=== PATIENT | male | born 1980 | race Caucasian/White ===

== ENCOUNTER 2020-11-09 11:34 | Emergency (ER) | payer BC ==
[~2020-11-09] VITALS: Ht 188 cm; Wt 97.7 kg
[2020-11-09] MEDS ORDERED: diltiazem 5mg/ml 5ml inj. IV ONE (11:55)
[2020-11-09 12:11] LABS: BASOPHILS % (AUTO) 0.4 % (0-1); EOSINOPHILS # (AUTO) 0.4 X10'3 (0-0.9); EOSINOPHILS % (AUTO) 3.8 % (0-6); HEMATOCRIT 51.1 % (42.0-52.0); HEMOGLOBIN 17.4 g/dl (14.0-17.9); LYMPHOCYTES # (AUTO) 1.9 X10'3 (1.1-4.8); LYMPHOCYTES % (AUTO) 20.2 % (21-51); MEAN CORPUSCULAR HEMOGLOBIN 32.3 PG (27.0-31.0); MEAN CORPUSCULAR HGB CONC 34.1 g/dL (33.0-36.5); MEAN CORPUSCULAR VOLUME 94.5 FL (78-98); MEAN PLATELET VOLUME 7.8 FL (7.4-10.4); MONOCYTES # (AUTO) 0.7 X10'3 (0-0.9); MONOCYTES % (AUTO) 7.4 % (2-12); NEUTROPHILS # (AUTO) 6.4 X10'3 (1.8-7.7); NEUTROPHILS % (AUTO) 68.2 % (42-75); PLATELET COUNT 268 X10'3 (140-440); RED CELL DISTRIBUTION WIDTH 12.6 % (11.5-14.5); WHITE BLOOD COUNT 9.4 X10'3 (4.5-11.0)
[2020-11-09 12:35] LABS: ALANINE AMINOTRANSFERASE 32 U/L (12-78); ALBUMIN 4.4 G/DL (3.4-5.0); ALBUMIN/GLOBULIN RATIO 1.2 (1.1-1.5); ALKALINE PHOSPHATASE 61 IU/L (46-116); ASPARTATE AMINO TRANSFERASE 24 U/L (10-37); BILIRUBIN,TOTAL 0.7 MG/DL (0.1-1.0); BLOOD UREA NITROGEN 9 MG/DL (7-18); BUN/CREATININE RATIO 7.3 (5.4-32.0); CHLORIDE 106 MMOL/L (99-107); CREATININE 1.23 MG/DL (0.60-1.10); GLUCOSE 75 MG/DL (70-104); MAGNESIUM 2.3 MG/DL (1.5-2.4); POTASSIUM 4.1 MMOL/L (3.5-5.1); TOTAL CARBON DIOXIDE 29.3 MMOL/L (24-32); eGFR 65 ML/MIN
[2020-11-09] MEDS ORDERED: etomidate 2mg/ml inj. IV ONE (12:35)
[2020-11-09 12:52] LABS: ANION GAP 11 (8-16); SODIUM 145 MMOL/L (135-145)
[2020-11-09 14:19] VITALS: BP 121/77
== END 2020-11-09 14:20 | disposition home or self-care (01) ==
LOC: ER 11:35
DX: I48.20 Chronic atrial fibrillation, unspecified (principal); R00.2 Palpitations; R42 Dizziness and giddiness
CPT/HCPCS: 36415; 71045; 80053; 83735; 83880; 84443; 84484; 85025; 92960; 93005; 94760; 94799; 96374; 99291; J3490

== ENCOUNTER 2021-01-14 07:29 | Emergency (ER) | payer BC ==
[~2021-01-14] VITALS: Ht 188 cm; Wt 97.7 kg
[2021-01-14] MEDS ORDERED: fentaNYL/PF 50MCG/1 ML 2ML syringe IV ONE (07:45)
[2021-01-14] MEDS ORDERED: ondansetron/PF 4mg/2ml inj IV ONE ×2 (07:45)
[2021-01-14] MEDS ORDERED: etomidate 2mg/ml inj. IV ONE (07:45)
[2021-01-14] MEDS ORDERED: heparin 10,000 units/1 ML INJ IV ONE (07:45)
[2021-01-14] MEDS ORDERED: SOTA80TA PO (08:01)
[2021-01-14] MEDS ORDERED: APIX5TAB3 PO (08:01)
[2021-01-14 08:34] LABS: BASOPHILS % (AUTO) 0.1 % (0-1); EOSINOPHILS # (AUTO) 0.2 X10'3 (0-0.9); EOSINOPHILS % (AUTO) 1.8 % (0-6); HEMATOCRIT 44.1 % (42.0-52.0); HEMOGLOBIN 15.1 g/dl (14.0-17.9); LYMPHOCYTES # (AUTO) 1.5 X10'3 (1.1-4.8); LYMPHOCYTES % (AUTO) 18.4 % (21-51); MEAN CORPUSCULAR HEMOGLOBIN 32.6 PG (27.0-31.0); MEAN CORPUSCULAR HGB CONC 34.3 g/dL (33.0-36.5); MONOCYTES # (AUTO) 0.5 X10'3 (0-0.9); MONOCYTES % (AUTO) 6.5 % (2-12); NEUTROPHILS # (AUTO) 6.2 X10'3 (1.8-7.7); NEUTROPHILS % (AUTO) 73.2 % (42-75); PLATELET COUNT 224 X10'3 (140-440); RED BLOOD COUNT 4.64 X10'6 (4.70-6.10); RED CELL DISTRIBUTION WIDTH 12.5 % (11.5-14.5); WHITE BLOOD COUNT 8.4 X10'3 (4.5-11.0)
[2021-01-14 08:39] LABS: ALANINE AMINOTRANSFERASE 26 U/L (12-78); ALBUMIN/GLOBULIN RATIO 1.4 (1.1-1.5); ALKALINE PHOSPHATASE 48 IU/L (46-116); ANION GAP 16 (8-16); ASPARTATE AMINO TRANSFERASE 22 U/L (10-37); BILIRUBIN,TOTAL 1.4 MG/DL (0.1-1.0); BLOOD UREA NITROGEN 11 MG/DL (7-18); BUN/CREATININE RATIO 10.4 (5.4-32.0); CALCIUM 8.2 MG/DL (8.5-10.1); CHLORIDE 105 MMOL/L (99-107); CREATININE 1.06 MG/DL (0.60-1.10); GLUCOSE 115 MG/DL (70-104); POTASSIUM 3.3 MMOL/L (3.5-5.1); SODIUM 141 MMOL/L (135-145); TOTAL CARBON DIOXIDE 19.7 MMOL/L (24-32); TOTAL PROTEIN 6.9 G/DL (6.4-8.2); eGFR 77 ML/MIN
[2021-01-14 09:17] VITALS: BP 108/61
== END 2021-01-14 09:23 | disposition home or self-care (01) ==
LOC: ER 07:29
DX: I48.20 Chronic atrial fibrillation, unspecified (principal); F17.200 Nicotine dependence, unspecified, uncomplicated; F12.90 Cannabis use, unspecified, uncomplicated; F14.90 Cocaine use, unspecified, uncomplicated; Z72.89 Other problems related to lifestyle; Z79.01 Long term (current) use of anticoagulants; Z79.899 Other long term (current) drug therapy
CPT/HCPCS: 36415; 71045; 80053; 84443; 84484; 85025; 92960; 93005; 94799; 96374; 99152; 99285; J1644; J2405; J3010

== ENCOUNTER 2023-09-23 10:49 | Emergency (ER) | payer BC, MEDICAID ==
[~2023-09-23] VITALS: Ht 188 cm; Wt 93.7 kg
[~2023-09-23 10:49] MED LIST: APIX5TAB3 PO; SOTA80TA PO
[2023-09-23 10:57] VITALS: TEMP 97.8
[2023-09-23 11:09] LABS: BASOPHILS % (AUTO) 0.2 % (0-1); EOSINOPHILS # (AUTO) 0.4 X10'3 (0-0.9); EOSINOPHILS % (AUTO) 4.1 % (0-6); HEMATOCRIT 51.4 % (42.0-52.0); HEMOGLOBIN 17.6 g/dl (14.0-17.9); LYMPHOCYTES # (AUTO) 1.4 X10'3 (1.1-4.8); LYMPHOCYTES % (AUTO) 16.3 % (21-51); MEAN CORPUSCULAR HEMOGLOBIN 31.9 PG (27.0-31.0); MEAN CORPUSCULAR HGB CONC 34.2 g/dL (33.0-36.5); MEAN CORPUSCULAR VOLUME 93.1 FL (78-98); MEAN PLATELET VOLUME 7.4 FL (7.4-10.4); MONOCYTES # (AUTO) 0.6 X10'3 (0-0.9); MONOCYTES % (AUTO) 6.5 % (2-12); NEUTROPHILS # (AUTO) 6.4 X10'3 (1.8-7.7); NEUTROPHILS % (AUTO) 72.9 % (42-75); PLATELET COUNT 297 X10'3 (140-440); RED BLOOD COUNT 5.52 X10'6 (4.70-6.10); RED CELL DISTRIBUTION WIDTH 13.2 % (11.5-14.5); WHITE BLOOD COUNT 8.7 X10'3 (4.5-11.0)
[2023-09-23 11:30] LABS: ALANINE AMINOTRANSFERASE 16 U/L (12-78); ALBUMIN 4.3 G/DL (3.4-5.0); ALBUMIN/GLOBULIN RATIO 1.3 (1.1-1.5); ALKALINE PHOSPHATASE 56 IU/L (46-116); ANION GAP 11 (8-16); ASPARTATE AMINO TRANSFERASE 14 U/L (10-37); BILIRUBIN,TOTAL 0.7 MG/DL (0.1-1.0); BLOOD UREA NITROGEN 8 MG/DL (7-18); BUN/CREATININE RATIO 7.3 (10.0-20.0); CALCIUM 8.4 MG/DL (8.5-10.1); CHLORIDE 108 MMOL/L (99-107); GLUCOSE 117 MG/DL (70-104); SODIUM 147 MMOL/L (135-145); TOTAL CARBON DIOXIDE 28.1 MMOL/L (24-32); TOTAL PROTEIN 7.7 G/DL (6.4-8.2); eCRCL 100 ML/MIN; eGFR 73 ML/MIN
[2023-09-23 11:36] LABS: PRO BRAIN NATRIURETIC PEPTIDE 871 PG/ML (0-125)
[2023-09-23 14:01] VITALS: BP 103/80; PULSE 77; O2SAT 97
[2023-09-23 14:42] VITALS: RESP 16
[2023-09-23] MEDS ORDERED: APIX5TAB3 PO (15:19)
[2023-09-23] MEDS: apixaban 5mg tablet PO STA (15:30)
== END 2023-09-23 15:46 | disposition home or self-care (01) ==
LOC: ER 10:50
DX: I48.20 Chronic atrial fibrillation, unspecified (principal)
CPT/HCPCS: 36415; 80053; 83880; 84484; 85025; 93005; 99284